=== PATIENT | female | born 1995 | race Caucasian/White ===

== ENCOUNTER 2024-01-18 05:57 | Inpatient (IN) ==
--- NOTE | 2023-09-08 08:38 | Anesthesiology Consultation ---
Date of Service September 08, 2023 Assessment & Plan (1) Encounter for pre-operative examination: Chart Review Chart Review: Acceptable Risk for Surgery (pending labs DOS ) and Patient NOT seen in Pre Admission Testing - Due to nature of procedure and HTN- check CBC with diff and PRP stat DOS -Infectious Disease screening: Per PAT nursing assessment on 09/01/23. No known infectious disease contacts in past 10 days or current infectious disease symptoms. No recent travel outside the country. Seen by PCP 08/09/23= seen for follow up on HTN. Lumbar disc degeneration. EMG ordered by Dr. Moses. Continue with pain management. Referral to Dr. Cook per patient request. Anxiety- stable and well controlled. HTN- BP at goal. L5-S1 right microdiscectomy 12/16/20= Done under [facility] with Grade 1 view with MAC #3. ETT #7.0. Atraumatic DL x 1. History Surgery Operation Date: 09/15/23 07:45 Proposed Procedures p L5-S1 Decompression and Fusion with Spinal Cord Monitoring - Marco Antonio Cook, DO Height/Weight Height: 5 ft 8 in Weight: 79.379 kg Allergies Allergy/AdvReac Type Severity Reaction Status Date / Time diclofenac Allergy Mild myalgia Verified 09/01/23 14:27 azithromycin Allergy Unknown Unknown Verified 09/01/23 14:27 Medications Home Medications Medication Instructions Recorded Confirmed Last Taken magnesium sulfate 100 mg capsule 100 mg PO QPM 09/29/22 09/01/23 Unknown propranolol 40 mg tablet 40 mg PO BID #180 tabs 06/20/23 09/01/23 Unknown melatonin 10 mg capsule 10 mg PO HS PRN Sleep 08/09/23 09/01/23 Unknown methocarbamol 750 mg tablet 1,500 mg PO TID PRN Pain 09/01/23 09/01/23 Unknown sertraline 50 mg tablet 50 mg PO QPM 09/01/23 09/01/23 Unknown Past Medical History Medical History Anxiety Cardiac murmur pt. states it was "a murmur of " no murmur noted at 08/09/23 PCP visit Carpal tunnel syndrome on both sides R>L Chronic low back pain Disc degeneration, lumbosacral History of COVID-19 (~2022) mild, resolved Hypertension "performance induced" per pt. HTN per PCP records- BP at goal- on propranolol Lumbosacral radiculopathy Past Family History Family History Father Colon cancer Grandfather (Maternal) Diabetes Past Surgical History Surgical History H/O microdiscectomy (~11/2020) L5-S1 History of bilateral tubal ligation History of colonoscopy Social History Smoking Status: Former smoker tobacco type: e-cigarettes Smoking cigarettes per day: 1/2 PPD Do You Dip or Chew Tobacco: No Smoking End Date: quit 8 years ago Hx Alcohol Use: No Hx Substance Use: No substance use type: does not use
[~2024-01-18 05:57] MED LIST: ACETAMINOPHEN 500 MG TAB PO SCH; CeleBREX 200 MG CAP PO SCH; GABAPENTIN 900 MG DOSE PO SCH; LR 15ML/HR IV SCH; LR 60ML/HR IV SCH; ceFAZolin 2000MG 2,000 MG/15 ML SYR IV SCH
[2024-01-18] MEDS: GABAPENTIN 900 MG DOSE PO SCH (06:39)
[2024-01-18] MEDS: ACETAMINOPHEN 500 MG TAB PO SCH (06:39)
[2024-01-18] MEDS: CeleBREX 200 MG CAP PO SCH (06:40)
[2024-01-18] MEDS: LR 60ML/HR IV SCH (06:40)
[2024-01-18 06:46] LABS: Basophils # (auto) 0.13 K/uL (0.00-0.20); Basophils % (auto) 1.4 %; Eosinophils # (auto) 0.65 K/uL (0.00-0.50); Eosinophils % (auto) 6.8 %; Hematocrit (blood only) 36.7 % (37.0-47.0); Hemoglobin 12.3 g/dl (12.0-16.0); Immature Granulocytes # (auto) 0.04 K/uL (0.01-0.20); Immature Granulocytes % (auto) 0.4 %; Lymphocytes # (auto) 3.53 K/uL (1.20-3.40); Lymphocytes % (auto) 36.8 %; Mean Corpuscular Hemoglobin 27.8 pg (25.0-34.0); Mean Corpuscular Hgb Conc 33.5 g/dL (32.0-36.0); Mean Platelet Volume 9.3 fL (9.4-12.4); Monocytes # (auto) 0.76 K/uL (0.11-0.59); Monocytes % (auto) 7.9 %; Neutrophils # (auto) 4.48 K/uL (1.40-6.50); Neutrophils % (auto) 46.7 %; Platelet Count 341 K/uL (130-400); RDW Coefficient of Variation 12.8 % (11.5-14.5); RDW Standard Deviation 39.1 fL (36.4-46.3); Red Blood Count 4.42 M/uL (4.20-5.40); White Blood Count 9.59 K/ul (4.8-10.8)
[2024-01-18 06:49] LABS: Partial Thromboplastin Time 28 Seconds (21-31); Prothrombin Time 10.7 Seconds (9.0-12.0)
[2024-01-18] MEDS ORDERED: ePHEDrine sulfate 50 MG/ML AMP IV PRN (06:57)
[2024-01-18] MEDS ORDERED: ATROPINE SULFATE 0.1 MG/ML 10ML SYR IV PRN (06:57)
[2024-01-18] MEDS ORDERED: ONDANSETRON INJ 2 MG/ML 2 ML VIAL IV PRN ×2 (06:57→10:58)
[2024-01-18 06:58] LABS: BUN Creatinine Ratio 15.5 (10-20); Creatinine Clr Calc Pharmacy 132.7 ml/min; Est GFR (African American) 132.5 ml/min; Est GFR (Non-African American) 114.3 ml/min; Potassium 3.9 mmol/L (3.5-5.1)
[2024-01-18] MEDS ORDERED: fentaNYL citrate PF 100 MCG/2 ML VIAL ONE (07:26)
[2024-01-18] MEDS ORDERED: MIDAZOLAM HCL 1 MG/ML 2ML VIAL ONE (07:26)
[2024-01-18] MEDS ORDERED: ROCURONIUM BROMIDE 10 MG/ML 5 ML VIAL IV ONE (07:26)
--- NOTE | 2024-01-18 07:35 | History & Physical Bridge Note ---
Date of Service January 18, 2024 History & Physical Bridge Note I have examined the patient, reviewed the History & Physical and in the interval since the performance of the History & Physical I have noted the following changes of clinical significance: no changes noted
--- NOTE | 2024-01-18 07:36 | History & Physical Report ---
Date of Service January 18, 2024 Assessment & Plan (1) Lumbar disc herniation with radiculopathy: Plan: L5-S1 decompression and fusion History of Present Illness Chief Complaint: Back and leg pain Primary Care Provider: CURT Sanchez This is a 28-year-old female with chronic persistent back and leg pain after failing course of nonoperative care is here for surgical invention. Allergies Allergy/AdvReac Type Severity Reaction Status Date / Time diclofenac Allergy Mild myalgia Verified 01/18/24 06:19 azithromycin Allergy Unknown Unknown Verified 01/18/24 06:19 Home Medications Medication Instructions Recorded Confirmed Type magnesium sulfate 100 mg capsule 100 mg PO QPM 09/29/22 01/18/24 History propranolol 40 mg tablet 40 mg PO BID #180 tabs 06/20/23 01/18/24 Rx melatonin 10 mg capsule 10 mg PO HS PRN Sleep 08/09/23 01/18/24 History methocarbamol 750 mg tablet 1,500 mg PO TID PRN Pain 09/01/23 01/18/24 History sertraline 50 mg tablet 50 mg PO QPM 09/01/23 01/18/24 History olopatadine 0.1 % eye drops 1 drp ophthalmic (eye) BID #5 mL 01/06/24 01/18/24 Rx (Pataday Twice Daily Relief) Past Med/Surg History Problem List (Updated 01/18/24 @ 07:36 by Marco Antonio Cook DO) Lumbar disc herniation with radiculopathy History of excision of lamina of lumbar vertebra for decompression of spinal cord L5-S1 November 2020 Disc degeneration, lumbosacral Lumbar pain with radiation down both legs Low back pain Right acute otitis media Chronic low back pain Anxiety Propranolol rx to help social anxiety, also HTN Benign essential hypertension Lumbar paraspinal muscle spasm Lumbosacral radiculopathy Status post spinal surgery Carpal tunnel syndrome on both sides DDD (degenerative disc disease), lumbar Radicular syndrome of right leg H/O tubal ligation Depression Medical History (Updated 01/18/24 @ 07:36 by Marco Antonio Cook DO) Disc degeneration, lumbosacral History of COVID-19 (~2022) mild, resolved Hypertension "performance induced" per pt. HTN per PCP records- BP at goal- on propranolol Anxiety Carpal tunnel syndrome on both sides R>L Cardiac murmur pt. states it was "a murmur of " no murmur noted at 08/09/23 PCP visit Surgical History S/P epidural steroid injection lumbar H/O microdiscectomy (~11/2020) L5-S1 History of colonoscopy History of bilateral tubal ligation Family History Father Colon cancer Grandfather (Maternal) Diabetes Other No family history of adverse response to anesthesia Social History Smoking Status: Former smoker Cigarettes Per Day: 1/2 PPD; Smoking End Date: 2016; Second Hand Exposure: No; Do You Dip or Chew Tobacco: No; Tobacco Cessation Education Requested by Patient: No Hx Alcohol Use: No Hx Substance Use: No Preferred Language: Slovak Communication Ability: Effective Visual Impairment: No Limitations Systems Navigator Required: No Beliefs That Will Affect Care: None Current Living Situation: Spouse and Family Other Information That Helps Us Care for You: No Feels Safe at Home: Yes Safety Concerns: Feels Safe At This Time Assistive Devices: Glasses Physical Exam Physical Exam: Patient is alert and oriented heart regular in rhythm Lungs clear Results & Data Results & Data Vital Signs (Past 12 Hours) Vital Signs Temp Pulse Resp BP Pulse Ox O2 Del Method 01/18/24 06:23 36.5 C 61 20 145/81 H 97 Room Air
[2024-01-18] MEDS: ceFAZolin 2000MG 2,000 MG/15 ML SYR IV SCH ×2 (07:42→16:06)
[2024-01-18] MEDS ORDERED: ePHEDrine sulfate 50 MG/ML AMP ONE (08:22)
[2024-01-18] MEDS ORDERED: LIDOCAINE 2% 2 ML VIAL/AMP(20MG/ML) INFIL ONE (08:22)
[2024-01-18] MEDS ORDERED: PROPOFOL IV EMULSION 10 MG/ML 20 ML VIAL IV ONE (08:22)
[2024-01-18] MEDS ORDERED: DEXAMETHASONE SOD INJ 4 MG/ML VIAL ONE (08:22)
[2024-01-18] MEDS: BUPIVACAINE/EPINEPHRINE 0.25% 1:200,000 30 ML VIAL ONE (08:42)
[2024-01-18] MEDS: ceFAZolin 330 MG/ML 1 GM VIAL ONE (08:43)
--- NOTE | 2024-01-18 09:19 | Operative Report ---
Post Operative Report Pre & Post Diagnosis Operation Date: 01/18/24 07:45 Pre-Op Diagnosis: Lumbar recurrent disc herniation lumbar spine L5-S1 with radiculopathy Post-Op Diagnosis: Same I identified the patient and participated in the time-out.: Yes Procedure Operation Date: 01/18/24 07:45 Actual Procedures Placement posterior instrumentation L5-S1. #4 interbody fusion L5-S1. #5 placement of Spira 10 x 22 mm x 2 at L5-S1. #6 placement locally harvested morselized autograft the posterior gutters. #7 placement infuse collagen sponge, with Koros in the posterior lateral gutters and os design interbody space. #8 placement of versa wrap over the exposed dura. #1 revision decompression with bilateral medial facetectomies and foraminotomies L5-S1. #2 posterior spinal fusion L5-S1. #3 Surgeon Marco Antonio Cook, Head Of Science Kay Rocha Estimated Blood Loss 50 Findings Consistent with Post-Op Diagnosis Specimens None Indications This is a 28-year-old female who presents above-mentioned diagnosis after failing since course of nonoperative care is here for surgical invention. Description of Procedure Patient was met with identified informed consent obtained. Patient was then taken to the operative suite underwent patient placed in a prone position on the Maury table top of the Samir frame. All bony promises well-padded eyes inspected to ensure no external precipice upon them. This point the lumbar spine was prepped and draped in normal sterile fashion. Sharp dissection with the assistance bradycardias form down to and exposing the remaining lamina transverse processes of L5 and sacral ala bilaterally. Revision laminectomy of L5 was then performed including bilateral medial facetectomies and foraminotomies addressing severe lateral recess and foraminal stenosis. Pedicle screws were then placed in L5 and S1 bilaterally with assistance of fluoroscopy and proper schedule placed. By way of transforaminal approach on the right discectomy of L5-S1 was performed endplates guided to subcortical bleeding bone and a 10 x 22 mm spiral cage filled with os design tapped in position. Then proceeded to the left transforaminal region at L5-S1. Again discectomy performed endplates guided to subcortical bleeding bone and a second 10 x 22 mm spiral cage with os design tapped in position. The rods were then compressed locked in final position bilaterally. The transverse processes of L5 and sacral ala burred to subcortical pain bone. Infuse collagen sponge, with Koros and local autograft placed in posterior gutters. Versa wrap placed over the exposed dura. 15 round LUCILLE drain inserted. The incision then closed with 1 Vicryl to fascia 2-0 Vicryl subcutaneously and 4 Monocryl for final skin closure. Steri- Strips sterile dressing placed. Patient waken taken PACU stable condition. Please note spinal cord monitoring was utilized at the procedure no changes noted. Kay Rocha was present at the entire procedure involved the patient positioning complex portions of the surgery and fascial closure. Im ordering 20 grams of Triple [place] Collagen Powder ([employer] [id number]) to treat an incision wound that was caused by a spine procedure. The incision is approximately 2 cm(W) x 4 cm(L) into the joint (D) in size and is a full thickness wound. Triple [place] collagen comes in 1 gram packets so 20 packets were ordered. Given the size of the wound, with light to moderate exudate I chose to order a 20 day supply. The patient will be provided instructions for proper application of the collagen wound kit. The patient will be asked to apply the collagen powder daily and then cover it with sterile dressings dispensed. Collagen was selected as I expect the collagen to attract monocytes and fibroblasts, act as a sacrificial substrate for MMPs, and ultimately proved a matrix for tissue and vessel growth. The collagen will act as a primary dressing in this scenario. It is medically necessary for proper healing of these wounds to improve bioavailability and contact with each wound surface, this is also to help prevent infection of wounds and promote healing ultimately leading to a better healing outcome and limit the risk of infection. I attest to the content of the Intraoperative Record and any orders documented therein. Any exceptions are noted below.
[2024-01-18] MEDS: FLOSEAL HEMOSTATIC MATRIX 10ML TOP ONE ×2 (09:20→09:21)
[2024-01-18] MEDS: fentaNYL citrate PF 100 MCG/2 ML VIAL IV PRN (09:37)
[2024-01-18] MEDS: HYDROmorphone INJ 0.5 MG/0.5 ML SYR IV STA (10:12)
[2024-01-18] MEDS: HYDROmorphone INJ 0.5 MG/0.5 ML SYR ONE (10:12)
[2024-01-18] MEDS ORDERED: DO NOT ADMINISTER PNEUMOCOCCAL VACCINE PRN (10:58)
[2024-01-18] MEDS ORDERED: bisacodyL 10 MG SUPP PR PRN (10:58)
[2024-01-18] MEDS ORDERED: MAGNESIUM HYDROXIDE SUSP 30 ML UDC PO PRN (10:58)
[2024-01-18] MEDS ORDERED: ALUMINUM/MAGNESIUM SUSP 30 ML UDC PO PRN (10:58)
[2024-01-18] MEDS ORDERED: hydrOXYzine HCl 25 MG TAB PO PRN (10:58)
[2024-01-18] MEDS ORDERED: ACETAMINOPHEN 1,000 MG/100 ML VIAL IV PRN (10:58)
[2024-01-18] MEDS ORDERED: NALOXONE HCL 0.4 MG/1 ML VIAL/CARP IV PRN (10:58)
[2024-01-18] MEDS ORDERED: ONDANSETRON 4 MG OD TAB PO PRN (10:58)
[2024-01-18] MEDS ORDERED: SOD PHOSPHATE/SOD BIPHOSPHATE ENEMA 132 ML BTL PR PRN (10:58)
[2024-01-18] MEDS ORDERED: PROMETHAZINE 12.5 MG/50.5 ML BAG IV PRN (10:58)
[2024-01-18] MEDS ORDERED: METOCLOPRAMIDE HCL INJ 5 MG/ML 2 ML VIAL IV PRN (10:58)
[2024-01-18] MEDS ORDERED: diphenhydrAMINE Capsule 25 MG CAP PO PRN (10:58)
[2024-01-18] MEDS ORDERED: FAMOTIDINE 20 MG TAB PO PRN (10:58)
[2024-01-18] MEDS ORDERED: HYDROmorphone INJ 0.5 MG/0.5 ML SYR IV PRN (10:58)
[2024-01-18] MEDS ORDERED: LORazepam 2 MG/1 ML VIAL IV PRN (10:58)
[2024-01-18] MEDS ORDERED: ACETAMINOPHEN 500 MG TAB PO PRN (10:58)
[2024-01-18] MEDS ORDERED: DO NOT ADMINISTER FLU VACCINE PRN (10:58)
--- NOTE | 2024-01-18 11:01 | Anesthesiology Progress Note ---
Date of Service January 18, 2024 Anesthesia Post Procedure Vital Signs Vital Signs: Temp Pulse Pulse Resp BP Pulse Ox O2 Del Method 01/18/24 10:41 36.5 C 60 16 111/72 96 Room Air 01/18/24 10:30 52 L 12 112/71 95 Room Air 01/18/24 10:20 36.4 C L 64 12 116/73 100 Room Air 01/18/24 10:10 54 L 12 117/72 100 Nasal Cannula 01/18/24 10:00 51 L 14 116/74 100 Nasal Cannula 01/18/24 09:50 54 L 14 107/71 100 Nasal Cannula 01/18/24 09:40 48 L 15 113/74 99 Nasal Cannula 01/18/24 09:31 36.3 C L 77 20 135/72 100 Nasal Cannula 01/18/24 06:23 36.5 C 61 20 145/81 H 97 Room Air O2 Flow Rate 01/18/24 10:41 01/18/24 10:30 0 01/18/24 10:20 0 01/18/24 10:10 2 01/18/24 10:00 2 01/18/24 09:50 2 01/18/24 09:40 2 01/18/24 09:31 2 01/18/24 06:23 Pain Intensity Back: Pain Intensity: 7 Transfer of Care Handoff Completed per policy Notes Mental Status: alert / awake / arousable Patient Amnestic to Procedure: Yes Nausea / Vomiting: adequately controlled Pain: adequately controlled Airway Patency, RR, SpO2: stable & adequate BP & HR: stable & adequate Hydration State: stable & adequate Anesthetic Complications: no major complications apparent and Pt Satisfied with anesthetic care
[2024-01-18] MEDS: oxyCODONE HCL IR 5 MG TAB (IMMEDIATE RELEASE) PO PRN (11:27)
[2024-01-18] MEDS: LACTATED RINGER'S 1,000 ML IV SCH (11:28)
[2024-01-18] MEDS: traMADol HCL 50 MG TABLET PO PRN (14:28)
--- NOTE | 2024-01-18 19:15 | Fluoroscopy Report ---
INTRAOPERATIVE RADIOGRAPHS CLINICAL HISTORY: L5-S1 spinal fusion. Fluoro time: 21 seconds Ka,r: 16.44 mGy FINDINGS: 2 spot fluoroscopic views of the lumbar spine are presented. There has been discectomy at L 5-S1 with laminectomy and posterior fusion at this level. Interpedicular screws are in place. The ort hopedic hardware appears intact. IMPRESSION: Intraoperative images from lumbar spinal fusion surgery as above. Electronically signed by: Fili Mclain M.D. 01/18/2024 7:13 PM
[2024-01-18] MEDS: DOCUSATE SODIUM/SENNA 50/8.6MG TAB PO SCH (19:46)
[2024-01-18] MEDS: SERTRALINE HCL 50 MG TABLET PO SCH (19:47)
[2024-01-18] MEDS: PROPRANOLOL HCL 20 MG TAB PO SCH (19:47)
[2024-01-18] MEDS: MELATONIN 3 MG TAB PO PRN (19:51)
[2024-01-18] MEDS: HYDROmorphone INJ 1 MG/ML SYRINGE IV PRN (23:06)
[2024-01-19] MEDS: POLYETHYLENE (MIRALAX) 17 GM PACK PO SCH (05:16)
--- NOTE | 2024-01-19 06:04 | Electrocardiogram Report ---
Test Reason : Blood Pressure : */* mmHG Vent. Rate : 53 BPM Atrial Rate : 53 BPM P-R Int : 204 ms QRS Dur : 94 ms QT Int : 416 ms P-R-T Axes : 54 53 71 degrees QTcB Int : 390 ms Sinus bradycardia Early repolarization Otherwise normal ECG No previous ECGs available Confirmed by Samuel Connolly ([id number]) on 01/19/2024 6:04:15 AM Referred By: Marco Antonio Cook Confirmed By: Samuel Connolly
[2024-01-19 06:30] LABS: Basophils # (auto) 0.04 K/uL (0.00-0.20); Basophils % (auto) 0.3 %; Eosinophils % (auto) 0.7 %; Hematocrit (blood only) 32.4 % (37.0-47.0); Hemoglobin 10.7 g/dl (12.0-16.0); Immature Granulocytes # (auto) 0.09 K/uL (0.01-0.20); Immature Granulocytes % (auto) 0.6 %; Lymphocytes # (auto) 2.36 K/uL (1.20-3.40); Lymphocytes % (auto) 15.7 %; Mean Corpuscular Hemoglobin 27.8 pg (25.0-34.0); Mean Corpuscular Volume 84.2 fL (80.0-100.0); Mean Platelet Volume 9.4 fL (9.4-12.4); Monocytes # (auto) 1.19 K/uL (0.11-0.59); Monocytes % (auto) 7.9 %; Neutrophils # (auto) 11.28 K/uL (1.40-6.50); Neutrophils % (auto) 74.8 %; Platelet Count 301 K/uL (130-400); RDW Coefficient of Variation 13.1 % (11.5-14.5); RDW Standard Deviation 39.5 fL (36.4-46.3); Red Blood Count 3.85 M/uL (4.20-5.40); White Blood Count 15.06 K/ul (4.8-10.8)
[2024-01-19 06:51] LABS: BUN Creatinine Ratio 11.6 (10-20); Calcium 8.8 mg/dl (8.6-10.3); Creatinine Clr Calc Pharmacy 136.5 ml/min; Est GFR (African American) 135.4 ml/min; Est GFR (Non-African American) 116.8 ml/min; Potassium 4.5 mmol/L (3.5-5.1)
--- NOTE | 2024-01-19 08:06 | Orthopedic Progress Note ---
Date of Service January 19, 2024 Assessment & Plan (1) Lumbar disc herniation with radiculopathy: Plan: At this time we will continue physical therapy monitor her LUCILLE operatively discharged home in the next few days. Admission and Anticipated Discharge Date Admission Date: January 18, 2024 Subjective Back pain is controlled leg pain improved Physical Exam Physical Exam: Patient is comfortable. She is concerned to testing. Results & Data Vital Signs (Past 12 Hours) Vital Signs Temp Pulse Resp BP Pulse Ox O2 Del Method 01/19/24 07:51 36.5 C 56 L 15 109/69 97 Room Air 01/19/24 03:33 36.4 C L 62 18 101/63 97 Room Air 01/18/24 23:15 36.5 C 68 16 121/68 97 Room Air
[2024-01-19] MEDS: dexAMETHasone 6 MG in SYRINGE 0 ML IV SCH (08:24)
[2024-01-19] MEDS: LORazepam 0.5 MG TAB PO PRN (21:02)
[2024-01-20 09:14] VITALS: BP 124/82; PULSE 60; RESP 20; TEMP 97.9; O2SAT 96
--- NOTE | 2024-01-24 07:54 | Discharge Summary ---
Date of Service January 24, 2024 Admission HPI Per Admitting Provider This is a 28-year-old female with chronic persistent back and leg pain after failing course of nonoperative care is here for surgical invention. Admission Exam (Per Admitting) Constitutional WD/WN, vitals as above Eyes normal visual nicholson by confrontation ENMT external ear and nose normal, oropharynx normal Neck normal visual inspection Respiratory normal respiratory effort Cardiovascular Extremities: normal capillary refill Gastrointestinal (Abdomen) Inspection/Auscultation: abdomen normal to inspection Musculoskeletal Spine: + pain with thoraco-lumbar ROM Extremities: extremities normal to inspection and strength 5/5 throughout Skin no rashes, warm and dry Neurologic normal touch/pain/proprioception and moves all extremities Psychiatric A+Ox3, euthymic affect Eye Contact: good eye contact Discharge Data Procedures Performed Operation Date: 01/18/24 07:45 Actual Procedures p L5-S1 Decompression and Fusion, Spinal Cord Monitoring(Not Applicable) - Marco Antonio Cook DO Hospital Course (1) Lumbar disc herniation with radiculopathy: Morena presented on January 17 with for lumbar decompression and fusion of L5- S1. She had an uneventful hospital course. Pain was controlled. She lab values were stable. May progress daily and physical therapy. She was subsequently discharged home on postoperative day 2January 19. Discharge Instructions ACTIVITY RECOMMENDATIONS: SELF CARE INSTRUCTIONS AFTER THORACIC/LUMBAR FUSIONS 1. You may walk to your tolerance. It is good exercise for your legs and back. Expect some back and intermittent leg aches and pains. 2. You may perform "counter-top" level activities (make a sandwich, maribel with a project, etc.). 3. No bending or lifting of more than 10 pounds or back twisting of any nature (roll like a log when turning in bed). 4. You may ride in a car for 20-30 minutes at a time. No driving until after your first visit with your doctor. 5. Frequent changes of position and restricting sitting to 30 minutes at a time will help limit the amount of back spasms and stiffness you may experience. 6. You may discontinue the use of ambulatory aids (cane, crutches, etc.) once your strength and confidence allow. 7. You may manager marketing sales the shower and let water strike your incision when you arrive home at least once daily. Do not take a tub bath, sit in a hot tub or go into a swimming pool until after your first recheck in the office. SPECIAL CARE INSTRUCTIONS: VERY IMPORTANT TO READ AND REVIEW A. Your surgical incision has been closed with a cosmetic suture under the skin that will dissolve in about 6 weeks. In 14 days, you can use a pair of clean scissors and cut the suture that is left outside of the skin at the ends of your incision. 1. The small skin tapes can be removed 7 days after surgery if they have not fallen off by that point. 2. You may keep the wound open to air as much as possible to promote healing after post-op day number 5 unless told otherwise by your doctor. 3. If you think the wound looks like it is becoming infected (redness or worsening drainage) and/or you are experiencing fever, chill or worsening back pain and muscle spasms, contact the office so that we may evaluate you as soon as possible. B. Complications are uncommon, but please contact us if you have any signs or symptoms of: 1. wound infection (fever higher than 102.5 degrees F, redness, separation of wound, drainage, or increasing pain from the incision) 2. blood clots in legs (pain, swelling, redness and warmth in legs) 3. urinary tract infection (fever higher than 102.5 degrees F, burning upon urination or increased frequency of urination) 4. nerve problems (inability to walk on your toes or heels, numbness, loss of bowel or bladder control) 5. any other symptoms that concern you C. Please call the office at if you have any concerns or questions about your operation or recovery. D. No smoking! Smoking drastically decreases the chance of a solid fusion. E. Do not take any anti-inflammatory medications (Indocin, Advil, Motrin, Aspirin, Naprosyn, etc.) as these may inhibit the chance of a solid fusion. Tylenol is okay to take for pain. MANAGING PAIN AFTER SPINAL SURGERY 1. Narcotic medication is intended for short-term use and will be provided for surgical pain. Surgical pain usually lasts for a period of 4-6 weeks. Narcotic medication includes Percocet, Vicodin, Darvocet, Tylenol #3 or Lortab. 2. Longer-term pain is more appropriately treated with non-narcotic medication such as Tylenol ES. 3. Muscle spasm is not appropriately treated with narcotics. Muscle relaxers such as Soma, Flexeril or Skelaxin can be used along with Tylenol ES. 4. Remember that we all live with some "aches and pains". This is not unusual or uncommon after an injury or as we get older. a. Back pain is expected and may include muscle spasms for 4 to 6 weeks after surgery. The pain should gradually improve. If the pain worsens for no apparent reason, please contact the office. b. Intermittent leg pain may also be experienced and should not be concerned about unless it worsens for no apparent reason. If so, please contact the office. 5. We will provide appropriate medication within the normal guidelines of their prescribed use. We will also be very cautious and aware of potential abuse and extended duration of patients' medication needs. a. Pain medications are for your comfort and to assist with sleep and rest so that the tissue can heal. They are not provided in order to return to normal activity and should not be used through the day. To do so or worsening pain at night can result from ongoing tissue damage and development of tolerance to the prescribed medicine. 6. Please allow 2-3 days to process refills. Prescriptions will not be mailed but must be picked up at the office. FOLLOW UP VISIT: Keep your scheduled follow-up appointment. Any questions, please call the office at .
== END 2024-01-20 12:39 | disposition home or self-care (01) | DRG 455 ==
LOC: ASU 05:57 → 3E 09:21